=== PATIENT | male | born 1985 | race Caucasian/White ===

== ENCOUNTER 2019-11-02 19:00 | Outpatient (CLI) | payer OTHER | END 2019-11-02 19:01 | disposition home or self-care (01) | LOC: SLEEPLAB 19:00 | PROVIDERS: ATTEND Internal Medicine | DX: G47.33 Obstructive sleep apnea (adult) (pediatric) (principal); G47.00 Insomnia, unspecified; R51 Headache; K21.9 Gastro-esophageal reflux disease without esophagitis; G31.84 Mild cognitive impairment of uncertain or unknown etiology; R06.83 Snoring; R53.83 Other fatigue; E66.9 Obesity, unspecified; R35.1 Nocturia; E11.9 Type 2 diabetes mellitus without complications; R09.02 Hypoxemia; Z68.42 Body mass index [BMI] 45.0-49.9, adult | CPT/HCPCS: 95811 ==